=== PATIENT | male | born 1990 | race Caucasian/White ===

== ENCOUNTER 2023-12-30 17:48 | Emergency (ER) | payer MEDICAID ==
[~2023-12-30] VITALS: Ht 185.4 cm; Wt 85.3 kg
[2023-12-30] MEDS ORDERED: OMEPRAZOLE20 MG PO (18:14)
[2023-12-30] MEDS ORDERED: INVEGA3 MG PO (18:14)
[2023-12-30] MEDS ORDERED: HYDROCODON-ACE1 EA10 PO (18:33)
[2023-12-30 18:41] VITALS: BP 163/93
[2023-12-30] MEDS ORDERED: HYDROCODONE/ACETA 5/325 TAB PO ONE (18:45)
== END 2023-12-30 18:41 | disposition home or self-care (01) ==
LOC: ED 17:48
DX: K04.7 Periapical abscess without sinus (principal); K21.9 Gastro-esophageal reflux disease without esophagitis; Z79.899 Other long term (current) drug therapy
CPT/HCPCS: 99282